=== PATIENT | male | born 1960 | race Caucasian/White ===

== ENCOUNTER 2016-10-31 08:16 | Emergency (ER) | payer MEDICARE ==
[2016-10-31] MEDS ORDERED: ALBUTEROL SULFATE 2.5 MG/0.5 ML VIAL.NEB IH ONE ×2 (08:22→08:30)
[2016-10-31 08:37] VITALS: BP 129/81
[2016-10-31 08:43] LABS: Hematocrit 35.5 % (42.0-52.0); Hemoglobin 11.6 gm/dL (13.5-18.0); Mean Cell Volume 95.4 fl (78-100); Mean Corpuscular Hemoglobin 31.2 pg (27-31); Mean Corpuscular Hgb Conc 32.7 g/dl (32-36); Mean Platelet Volume 9.9 fl (6.0-9.5); Platelet Count 96 K/mm3 (150-450); Red Blood Count 3.72 M/mm3 (4.7-6.0); Red Cell Distribution Width 13.6 % (11.5-14.0); White Blood Count 4.3 K/mm3 (4.0-10.5)
--- NOTE | 2016-10-31 08:56 | ERNOTE ---
Dyspnea - General Presenting Symptoms: shortness of breath Time Seen by Provider: 10/31/16 08:19 Source: patient Exam Limitations: no limitations - Immun/Allergies/Home Medications Immunizations: IMMUNIZATION HX Immunizations Up to Date Yes History of Influenza Vaccine Yes Hx Pneumococcal Vaccination No Allergies/Adverse Reactions: Allergies No Known Allergies Allergy (Verified 10/31/16 08:37) Home Medications: HOME MEDICATIONS Methadone HCl [Methadone] 5 mg PO BID 11/24/13 [Last Taken Unknown] Omeprazole [Prilosec] 20 mg PO DAILY 11/24/13 [Last Taken Unknown] Aspirin 81 mg PO DAILY 12/31/15 [Last Taken Unknown] Albuterol Sulfate/Ipratropium [Duoneb 2.5-0.5MG/3ML Soln] 3 ml IH Q6HRT #50 nebu 01/02/16 [Last Taken Unknown] Cholecalciferol (Vitamin D3) [Vitamin D] 2,000 unit PO DAILY #90 tablet [Last Taken Unknown] predniSONE [Prednisone] 20 mg PO DAILY #15 tablet 01/02/16 [Last Taken Unknown] Albuterol Sulfate 2.5 mg IH Q4H PRN #25 vial.neb 10/31/16 [Last Taken Unknown] Albuterol Sulfate [Proventil Hfa] 2 puff IH Q4H PRN 10/31/16 [Last Taken Unknown ] Budesonide/Formoterol Fumarate [Symbicort 160-4.5 Mcg Inhaler] 2 puff IH BID 04/11 [Last Taken Unknown] Levofloxacin [Levaquin] 500 mg PO DAILY 10/31/16 [Last Taken Unknown] Magnesium Oxide 840 mg PO HS 10/31/16 [Last Taken Unknown] Tiotropium [place] [Spiriva] 18 mcg IH DAILY 10/31/16 [Last Taken Unknown] - History of Present Illness Narrative: Patient started with increasing shortness of breath three days ago. He has a 100py smoking history, diagnoses of COPD, usually doctors at the ID in [place]. He had a temp of 102 initially , was seen in the walk in clinic two days ago and started on levaquin and prednisone. He feels that he is not getting better yet, he has chest tightness. He had his aortic valve replaced last year, angiogram at that time was normal. Date (Duration): 10/28/16 Severity: moderate Treatment [employer]: albuterol Initiating event: Reports: upper resp illness, exposure to smoke. Denies: out of meds Frequency of episodes: Reports: occassional episodes Modifying Factors - (Improves): Reports: albuterol Modifying Factors (Worsens): Reports: activity, lying down Associated Symptoms-Dyspnea: Reports: fever/chills, chest pain/discomfort - tightness, cough Prior Treatment: Reports: recently seen, currently on antibiotics, previous episodes Review of Systems - Review of Systems Constitutional: Present: recent illness, fever ENT: Present: nasal drainage. Absent: ear pain, sore throat Respiratory: Present: See HPI, shortness of breath, cough Cardiology: Present: chest pain Gastrointestinal/Abdominal: Absent: nausea, vomiting, diarrhea, abdominal pain Genitourinary: Present: no symptoms reported Skin: Absent: rash Neurological: Absent: headache - Patient's Past Medical History Patient History - Medical: Arthritis, Chronic Pain Patient History - Cardiac/Respiratory: COPD, Valvular Heart Disease Patient History - Cancer: No Hx of Cancer Patient History - Surgical Procedures: Back Surgery - c-spine, Total Hip Replacement, Other - valve replacement 2015 - Family History Father Family History - Medical: , Other Mother Family History - Medical: , Other Family History - Cardiac/Respiratory: Myocardial Infarction Brother Family History - Medical: Family History - Cardiac/Respiratory: Other - Social History Living Situations: home Alcohol Use: occasionally Drug Use: none Physical Exam - Physical Exam General Appearance: Present: wd/wn, alert, no apparent distress Eye Exam: Normal inspection: bilateral, PERRL: bilateral Ears, Nose, Throat: Present: normal ENT inspection, hearing grossly normal, normal pharynx Neck: Present: limited range of motion Respiratory: Present: no respiratory distress - slightly increased work of breathing with walking , decreased breath sounds, wheezing Cardiovascular/Chest: Present: regular rate, rhythm, no murmur Gastrointestinal/Abdominal: Present: normal bowel sounds, nontender, nondistended, soft Extremity Exam: Present: no edema Neurological Exam: Present: alert, oriented, normal mood/affect Skin Exam: Present: normal color, warm/dry ED Progress - Results and Orders Patient's Lab Results:: I have reviewed the patient's lab results. - Vital Signs Patient's Vital Signs:: I have reviewed the patient's vital signs. - EKG EKG: NSR, unchanged from - 12/2015, other - atrial enlargement, no acute changes EKG read: Interp. by me - X-Ray X-Ray #1 X-Ray: chest - chronic, no acute changes Interpretation: Reviewed by me - Progress/Reassessment Progress Note-Subjective: 10/31/16 08:41 better after breathing treatment, chest tightness 02/0210/31/16 09:38 discussed results, patient comfortable, saturating 95% on RA Departure Clinical Impression: COPD exacerbation - Departure Disposition: Home self-care Condition: Good Instructions: Chronic Obstructive Pulmonary Disease, [id number] Additional Instructions: take all your medication as prescribed take the albuterol instead of the duoneb follow up with your doctor as scheduled Prescriptions: Albuterol Sulfate 2.5 mg IH Q4H PRN #25 vial.neb PRN Reason: Shortness Of Breath/Wheezing
[2016-10-31 08:57] LABS: Total Cells Counted 100
[2016-10-31 09:01] LABS: Troponin I Less than 0.017 ng/ml (0.00-0.10)
[2016-10-31 09:03] LABS: ALT 54 U/L (19-67); AST 38 U/L (0-48); Albumin * 3.8 gm/dl (3.4-5.0); Alkaline Phosphatase * 64 U/L (50-170); BNP * 196 pg/mL (5-175); BUN/Creatinine Ratio 16.9 (9.0-21.6); Bilirubin, Total 0.4 mg/dL (0.0-1.1); Blood Urea Nitrogen 14 mg/dL (6-23); Ca. Corrected For Albumin 8.7 mg/dL (8.4-10.2); Calcium * 8.9 mg/dL (7.9-10.9); Carbon Dioxide 28.4 mmol/L (24-32.6); Chloride 104 mmol/L (97-106); Glucose * 135 mg/dL (70-110); Potassium 4.4 mmol/L (3.4-4.6); Sodium 141 mmol/L (132-142); Total Protein 7.1 gm/dL (6.2-8.2)
[2016-10-31 09:04] LABS: Band 9 % (0-2.0); Lymphocyte 3 % (20-51); Monocyte 3 % (0-9); Neutrophil 85 % (42-75); Neutrophil # 3.7 K/mm3 (1.3-6.0)
[2016-10-31 09:06] LABS: Dohle Bodies 2+; Platelet Estimate Decreased (NORMAL); RBC Morphology Normal (NORMAL); Toxic Granulation 2+
== END 2016-10-31 10:00 | disposition home or self-care (01) ==
LOC: ER 08:16
DX: J44.1 Chronic obstructive pulmonary disease with (acute) exacerbation (principal)

== ENCOUNTER 2016-11-03 06:27 | Emergency (ER) | payer MEDICARE ==
--- NOTE | 2016-11-03 07:20 | ERNOTE ---
Integumentary HPI - Narrative Date of Service: 11/03/16 - General Presenting Symptoms: other - swelling of neck Time Seen by Provider: 11/03/16 06:56 Source: patient, family Exam Limitations: no limitations - Immun/Allergies/Home Medications Immunizations: IMMUNIZATION HX Immunizations Up to Date Yes History of Influenza Vaccine No Hx Pneumococcal Vaccination Yes Allergies/Adverse Reactions: Allergies Allergy/AdvReac Type Severity Reaction Status Date / Time No Known Allergies Allergy Verified 10/31/16 08:37 Home Medications: HOME MEDICATIONS Methadone HCl [Methadone] 5 mg PO BID 11/24/13 [Last Taken Unknown] Omeprazole [Prilosec] 20 mg PO DAILY 11/24/13 [Last Taken Unknown] Aspirin 81 mg PO DAILY 12/31/15 [Last Taken Unknown] Albuterol Sulfate/Ipratropium [Duoneb 2.5-0.5MG/3ML Soln] 3 ml IH Q6HRT #50 nebu 01/02/16 [Last Taken Unknown] Cholecalciferol (Vitamin D3) [Vitamin D] 2,000 unit PO DAILY #90 tablet [Last Taken Unknown] predniSONE [Prednisone] 20 mg PO DAILY #15 tablet 01/02/16 [Last Taken Unknown] Albuterol Sulfate 2.5 mg IH Q4H PRN #25 vial.neb 10/31/16 [Last Taken Unknown] Albuterol Sulfate [Proventil Hfa] 2 puff IH Q4H PRN 10/31/16 [Last Taken Unknown ] Budesonide/Formoterol Fumarate [Symbicort 160-4.5 Mcg Inhaler] 2 puff IH BID 04/11 [Last Taken Unknown] Levofloxacin [Levaquin] 500 mg PO DAILY 10/31/16 [Last Taken Unknown] Magnesium Oxide 840 mg PO HS 10/31/16 [Last Taken Unknown] Tiotropium [place] [Spiriva] 18 mcg IH DAILY 10/31/16 [Last Taken Unknown] - History of Present Illness Narrative: Unusual irregular firm swelling of the left side of the neck which extends across the midline to the right side of the neck. It began suddenly this morning at 3 AM. No history of similar episode. Denies dental problems at this time. Patient is concerned that the swelling may affect his airway. He is breathing normally at this time with a normal pulse ox. He does have severe COPD but the swelling does not appear to be subcutaneous emphysema Date (Duration): 11/03/16 Time (Timing): 03:00 Location: Reports: neck Quality: Reports: other - swelling Severity: moderate Exposure: Reports: no cause identified Modifying Factors - (Improves): Reports: nothing Modifying Factors - (Worsens): Reports: nothing Associated Symptoms: Reports: denies symptoms Review of Systems - Review of Systems Constitutional: Present: no symptoms reported EYE: Present: no symptoms reported ENT: Present: See HPI Respiratory: Present: no symptoms reported Cardiology: Present: no symptoms reported Gastrointestinal/Abdominal: Present: no symptoms reported Genitourinary: Present: no symptoms reported Musculoskeletal: Present: no symptoms reported Skin: Present: no symptoms reported Neurological: Present: no symptoms reported Endocrine: Present: no symptoms reported Hematologic/Lymphatic: Present: no symptoms reported Psych: Present: no symptoms reported - Patient's Past Medical History Patient History - Medical: Arthritis, Chronic Pain Patient History - Cardiac/Respiratory: COPD, Valvular Heart Disease Patient History - Cancer: No Hx of Cancer Patient History - Surgical Procedures: Back Surgery, Total Hip Replacement, Other - Family History Father Family History - Medical: , Other Mother Family History - Medical: , Other Family History - Cardiac/Respiratory: Myocardial Infarction Brother Family History - Medical: Family History - Cardiac/Respiratory: Other - Social History Living Situations: spouse Have you smoked in the past 12 months: No Do you dip or chew tobacco: No Patient requests Smoking Cessation Consult: No Initiate information on Smoking Cessation: No Alcohol Use: occasionally Drug Use: none Physical Exam - Physical Exam General Appearance: Present: mild distress, anxious, other - no respiratory compromise Eye Exam: Normal inspection: bilateral, PERRL: bilateral Ears, Nose, Throat: Present: hearing grossly normal, normal pharynx - no evidence of dental abscess Neck: Present: full range of motion, other - irregular firm swelling of the left side of the neck with extension across the midline to the right side of the neck. Absent: lymphadenopathy (R), lymphadenopathy (L) Respiratory: Present: no respiratory distress, wheezing - minimal Cardiovascular/Chest: Present: regular rate, rhythm Gastrointestinal/Abdominal: Present: normal bowel sounds, nontender, nondistended, soft, no organomegaly Rectal Exam: Present: deferred Extremity Exam: Present: normal inspection Neurological Exam: Present: alert, oriented, normal mood/affect, no motor/ sensory deficits Skin Exam: Present: normal color, warm/dry Lymphatic Exam: Present: no adenopathy ED Progress - Vital Signs Vital Signs: Vital Signs 11/03/16 06:33 Temperature 36.2 C L Pulse Rate 88 Respiratory 22 H Rate Blood Pressure 146/83 O2 Sat by Pulse 93 Oximetry - Progress/Reassessment Chief Complaint: Abscess Progress:: Unchanged - Transfer of Care Physician Sign Out: Reno Lopez Receiving Physician: Asuncion Shen Pending Results: CT/MRI results Additional Notes: discussed with Dr. Shen Departure Clinical Impression: Neck swelling - Departure Condition: Stable
[2016-11-03 07:21] LABS: Hematocrit 37.8 % (42.0-52.0); Hemoglobin 12.4 gm/dL (13.5-18.0); Mean Cell Volume 94.5 fl (78-100); Mean Corpuscular Hgb Conc 32.8 g/dl (32-36); Mean Platelet Volume 9.7 fl (6.0-9.5); Platelet Count 113 K/mm3 (150-450); Red Cell Distribution Width 13.2 % (11.5-14.0); White Blood Count 4.8 K/mm3 (4.0-10.5)
[2016-11-03 07:23] LABS: Total Cells Counted 100
[2016-11-03 07:36] LABS: Albumin * 3.6 gm/dl (3.4-5.0); Anion Gap 10.1 mmol/L (6.8-13.8); BUN/Creatinine Ratio 9.4 (9.0-21.6); Bilirubin, Total 0.7 mg/dL (0.0-1.1); Carbon Dioxide 31.7 mmol/L (24-32.6); Potassium 3.8 mmol/L (3.4-4.6); Total Protein 6.8 gm/dL (6.2-8.2)
[2016-11-03 08:18] LABS: Atypical (Reactive) Lymph 12 % (0-2); Band 3 % (0-2.0); Eosinophil 3 % (0-3); Lymphocyte 27 % (20-51); Monocyte 8 % (0-9); Neutrophil 47 % (42-75); Neutrophil # 2.3 K/mm3 (1.3-6.0)
[2016-11-03 08:19] LABS: Platelet Estimate Decreased (NORMAL); Target Cells 1+
[2016-11-03 08:31] VITALS: BP 122/76
== END 2016-11-03 08:32 | disposition home or self-care (01) ==
LOC: ER 06:27
DX: K11.20 Sialoadenitis, unspecified (principal); R22.1 Localized swelling, mass and lump, neck; J44.9 Chronic obstructive pulmonary disease, unspecified; G89.29 Other chronic pain

== ENCOUNTER 2019-12-12 11:23 | Observation (INO) ==
[2019-12-12] MEDS ORDERED: ALBUTEROL SULFATE/IPRATROPIUM 3 ML NEBU IH ONE (11:34)
[2019-12-12 11:58] LABS: Hemoglobin 12.6 gm/dL (13.5-18.0); Mean Cell Volume 97.8 fl (78-100); Mean Corpuscular Hemoglobin 30.8 pg (27-31); Mean Corpuscular Hgb Conc 31.5 g/dl (32-36); Mean Platelet Volume 9.9 fl (8-11.3); Neutrophil # 4.6 K/mm3 (1.3-6.0); Platelet Count 113 K/mm3 (150-450); Red Blood Count 4.09 M/mm3 (4.7-6.0); Red Cell Distribution Width 13.1 % (11.5-14.0); White Blood Count 5.5 K/mm3 (4.0-10.5)
[2019-12-12] MEDS ORDERED: ALBUTEROL SULFATE 2.5 MG/0.5 ML VIAL.NEB IH ONE ×2 (12:12→13:26)
[2019-12-12] MEDS ORDERED: METHYLPREDNISOLONE SOD SUCC/PF 125 MG/2 ML VIAL IM ONE (12:12)
[2019-12-12 12:14] LABS: Anion Gap 12.2 mmol/L (6.8-13.8); BUN/Creatinine Ratio 13.2 (9.0-21.6); Bilirubin, Total 0.4 mg/dL (0.0-1.1); Ca. Corrected For Albumin 8.6 mg/dL (8.4-10.2); Calcium * 8.9 mg/dL (7.9-10.9); Carbon Dioxide 29.9 mmol/L (24-32.6); Potassium 4.1 mmol/L (3.4-4.6); Total Protein 7.7 gm/dL (6.2-8.2)
[2019-12-12] MEDS ORDERED: METHYLPREDNISOLONE SOD SUCC/PF 125 MG/2 ML VIAL IV ONE (13:36)
[2019-12-12] MEDS ORDERED: LEVOFLOXACIN IN DEXTROSE 5 % 750 MG/150 ML BAG IV ONE (13:39)
[2019-12-12] MEDS ORDERED: OSELTAMIVIR PHOSPHATE 75 MG CAPSULE PO ONE (13:39)
--- NOTE | 2019-12-12 13:53 | ERNOTE ---
Date of Service: 12/12/19 Time Seen by Provider: 12/12/19 12:03 Stated Complaint: cough, chest pain, COPD Presenting Symptoms:: cough, other - ST Source: patient Exam Limitations: no limitations Immunizations: IMMUNIZATION HX Immunizations Up to Date Yes History of Influenza Vaccine Yes Hx Pneumococcal Vaccination Yes Allergies/Adverse Reactions: Allergies No Known Allergies Allergy (Verified 12/10/19 13:20) Home Medications: HOME MEDICATIONS Budesonide/Formoterol Fumarate [Symbicort 160-4.5 Mcg Inhaler] 2 puff INHALATION BID 04/07/18 [Last Taken Unknown] Methocarbamol 750 mg PO TID 04/07/18 [Last Taken Unknown] Nitroglycerin 0.4 mg SUBLINGUAL Q5M 04/07/18 [Last Taken Unknown] albuterol sulfate 90 mcg/actuation aerosol inhaler 2 puff INHALATION Q4H PRN g 09/17/18 [Last Taken Unknown] duloxetine 30 mg capsule,delayed release 30 mg PO DAILY 09/17/18 [Last Taken Unknown] isosorbide mononitrate 60 mg tablet,extended release 24 hr 60 mg PO DAILY 09/17/18 [Last Taken Unknown] amoxicillin 500 mg capsule 500 mg PO TID 12/10/19 [Last Taken Unknown] levofloxacin 500 mg tablet 500 mg PO DAILY 5 Days #5 tab 12/10/19 [Last Taken Unknown] metoprolol tartrate 25 mg tablet 25 mg PO BID tab 12/10/19 [Last Taken Unknown] prednisone 20 mg tablet 40 mg PO DAILY 5 Days #10 tab 12/10/19 [Last Taken Unknown] tiotropium bromide 18 mcg capsule with inhalation device 1 cap IH DAILY 12/10/19 [Last Taken Unknown] - History of Present Ilness Narrative: Patient presents to the ED for SOB and cough. He has COPD and has been sick for 3 days. Went to walk in clinic and had steroids Rx'd but despite this feels worse. Takes neb at home. Has oxygen at night and CPAP. Feels SOB with exertion. No clear fever but has felt hot and cold. Worsening despite treatments Timing: getting worse Severity: moderate Frequency/Possible Cause: Reports: occasional episodes Modifying Factors - Improves: Reports: nothing Modifying Factors - Worsens: Reports: activity Associated Symptoms: Reports: cough, shortness of breath, nasal congestion Prior Treatment: Reports: recently seen, treated by physician. Denies: currently on antibiotics Review of Systems - Review of Systems Constitutional: Present: See HPI EYE: Present: no symptoms reported ENT: Present: See HPI Respiratory: Present: cough Cardiology: Absent: chest pain Gastrointestinal/Abdominal: Absent: abdominal pain All Other Systems: All systems neg except as marked Medical History (Last Reviewed 12/12/19 @ 13:48 by Maximo Berkowitz MD) Pneumonia (Acute) Arthritis of right hip (Chronic) Pain, dental (Acute) Dental infection (Acute) COPD exacerbation (Acute) Neck swelling (Acute) Sialoadenitis of submandibular gland (Acute) Acute hip pain (Acute) Intractable pain (Acute) Elevated LFTs (Acute) Biliary obstruction (Acute) Chest pain (Acute) Arthritis Onset Date: Unknown COPD (chronic obstructive pulmonary disease) Onset Date: 12/19/17 GERD (gastroesophageal reflux disease) Onset Date: Unknown Influenza B Onset Date: 12/19/17 Pneumonia due to infectious organism Onset Date: 12/19/17 Wheezing Onset Date: 12/19/17 Surgical History: Surgical History (Last Reviewed 12/12/19 @ 13:48 by Maximo Berkowitz MD) H/O aortic valve replacement Onset Date: Unknown History of right hip replacement Onset Date: Unknown 9 total Family History: Family History (Last Reviewed 12/12/19 @ 13:48 by Maximo Berkowitz MD) Father Liver cirrhosis Mother Myocardial infarction Brother Mononucleosis Social History: (Last Reviewed 12/12/19 @ 13:48 by Maximo Berkowitz MD) Social History: adopted: No foster care: No snf: No Marital status: lives independently: Yes household members: spouse caregiver/support person: No current occupational status: employed Service: No Tobacco: Smoking Status: Former smoker Alcohol: alcohol intake: never Substance Use: substance use type: does not use Dietary Habits: caffeine: No Physical Exam - Physical Exam General Appearance: Present: alert, other - frequent cough, tachypnea noted Head Exam: Present: normal inspection, no evidence of injury Eye Exam: Normal inspection: bilateral, PERRL: bilateral Ears, Nose, Throat: Absent: pharyngeal erythema, pharyngeal swelling, dry mucous membranes Neck: Present: normal inspection Respiratory: Present: respiratory distress, wheezing Cardiovascular/Chest: Present: regular rate, rhythm Gastrointestinal/Abdominal: Present: normal bowel sounds, nontender, soft Back Exam: Present: normal range of motion Extremity Exam: Present: normal range of motion Neurological Exam: Present: alert, no motor/sensory deficits Skin Exam: Present: normal color, warm/dry Progress - Results and Orders Patient's Lab Results:: I have reviewed the patient's lab results. - Vital Signs Patient's Vital Signs:: I have reviewed the patient's vital signs. Vital Signs: Vital Signs 12/12/19 11:29 12/12/19 11:42 12/12/19 11:51 Temperature 36.5 C Pulse Rate 100 87 87 Respiratory Rate 21 H 21 H 22 H Blood Pressure 130/83 132/75 O2 Sat by Pulse Oximetry 95 95 96 12/12/19 12:36 12/12/19 12:38 12/12/19 12:46 Temperature Pulse Rate 87 82 87 Respiratory Rate 22 H 15 20 Blood Pressure 130/68 O2 Sat by Pulse Oximetry 94 93 12/12/19 13:03 Temperature Pulse Rate 81 Respiratory Rate 21 H Blood Pressure 126/60 O2 Sat by Pulse Oximetry 90 L - X-Ray X-Ray #1 X-Ray: chest Interpretation: Interp. by me X-ray Comments: I reviewed official radiology report - Progress/Reassessment Chief Complaint: Upper Respiratory Symptoms Progress Note-Subjective: 12/12/19 13:50 Patient with Influenza and COPD exacerbation. Steroids and nebs given. Desats and gets increased SOB with exertion. Hypoxia noted. Given underlying severe lung Dz needs obs[facility] to [facility]ize here. Dr Torey max d, she will admit. Given severe underlying lung Dz elect to start Tamiflu despite just being out of window. Also Abx per Dr Lema. No need for PPV at this time. Patient agreeable. I discussed warning signs and reasons to return as well as the need for close f/u. Departure Clinical Impression: COPD exacerbation, Influenza, Hypoxia - Departure Disposition: Still a patient Condition: Fair
[2019-12-12] MEDS ORDERED: ALBUTEROL SULFATE 2.5 MG/0.5 ML VIAL.NEB IH PRN (16:42)
--- NOTE | 2019-12-12 16:51 | HP ---
Chief Complaint - Chief Complaint Date of Service: 12/12/19 Time of Service: 16:10 Chief Complaint: shortness of breath History of Present Illness: Patient with past medical history of COPD, previous valve replacement presents with 3-day history of acute shortness of breath. His symptoms started 3 days prior with cough. They worsened the next day and he went to the walk-in clinic, and was prescribed 40 mg prednisone and Levaquin. He had severe chest pain yesterday, for which she took 2 nitroglycerin tablets, which managed his chest pain. He was not getting better today, so came to our ED. He was noted to have significant shortness of breath, and oxygenation was decreased into the 80s with any ambulation. His influenza A was positive. He does wear 3 L of oxygen at night, and uses a CPAP. He is to be admitted for treatment of COPD exacerbation. [facility] however [facility] do not have [facility]. Chest x-ray was reviewed, and does not reveal any acute process. White blood cell count was not elevated at 5.5. He is intermittently tachypneic, up to 22 respirations per minute. Blood pressure and heart rate are normal. His oxygenation is down to 88% in the ED. Medical History (Last Reviewed 12/12/19 @ 14:41 by Sophie Aldridge RN) Pneumonia (Acute) Arthritis of right hip (Chronic) Pain, dental (Acute) Dental infection (Acute) COPD exacerbation (Acute) Neck swelling (Acute) Sialoadenitis of submandibular gland (Acute) Acute hip pain (Acute) Intractable pain (Acute) Elevated LFTs (Acute) Biliary obstruction (Acute) Chest pain (Acute) Hernia Arthritis Onset Date: Unknown COPD (chronic obstructive pulmonary disease) Onset Date: 12/19/17 GERD (gastroesophageal reflux disease) Onset Date: Unknown Influenza B Onset Date: 12/19/17 Pneumonia due to infectious organism Onset Date: 12/19/17 Wheezing Onset Date: 12/19/17 Surgical History: Surgical History (Last Reviewed 12/12/19 @ 14:41 by Sophie Aldridge RN) History of carpal tunnel release History of cholecystectomy H/O aortic valve replacement Onset Date: Unknown History of right hip replacement Onset Date: Unknown 14 total Family History: Family History (Last Reviewed 12/12/19 @ 14:42 by Sophie Aldridge RN) Father Liver cirrhosis Mother Myocardial infarction Brother Mononucleosis Myocardial infarction Lung cancer Sister Myocardial infarction Social History: (Last Reviewed 12/12/19 @ 14:44 by Sophie Aldridge RN) Social History: adopted: No foster care: No fpc: No Marital status: lives independently: Yes household members: spouse caregiver/support person: No current occupational status: employed, unemployed Service: Yes branch: [employer] Social status: retired Tobacco: Smoking Status: Former smoker Alcohol: alcohol intake: current alcohol intake frequency: a few times a week Substance Use: substance use type: does not use Dietary Habits: caffeine: Yes Type: carbonated beverages Review Of Systems (GEN) - Review of Systems Generalized/Overall Review: Absent: Fever EENTM: Present: No Symptoms Reported Respiratory: Present: Cough, Shortness of Breath, Wheezing Cardiac: Present: Chest Pain. Absent: Edema Abdominal: Absent: Vomiting Genitourinary: Present: No Symptoms Reported Musculoskeletal: Present: No Symptoms Reported Neurological: Present: No Symptoms Reported Skin: Present: No Symptoms Reported Endocrine: Present: No Symptoms Reported Immunizations: IMMUNIZATION HX Immunizations Up to Date Yes History of Influenza Vaccine Yes Hx Pneumococcal Vaccination Yes Allergies/Adverse Reactions: Allergies Allergy/AdvReac Type Severity Reaction Status Date / Time No Known Allergies Allergy Verified 12/12/19 14:44 Home Medications: HOME MEDICATIONS Budesonide/Formoterol Fumarate [Symbicort 160-4.5 Mcg Inhaler] 2 puff INHALATION BID 04/07/18 [Last Taken Unknown] Methocarbamol 750 mg PO TID 04/07/18 [Last Taken Unknown] Nitroglycerin 0.4 mg SUBLINGUAL Q5M 04/07/18 [Last Taken Unknown] albuterol sulfate 90 mcg/actuation aerosol inhaler 2 puff INHALATION Q4H PRN g 09/17/18 [Last Taken Unknown] duloxetine 30 mg capsule,delayed release 30 mg PO DAILY 09/17/18 [Last Taken Unknown] isosorbide mononitrate 60 mg tablet,extended release 24 hr 60 mg PO DAILY 09/17/18 [Last Taken Unknown] amoxicillin 500 mg capsule 500 mg PO TID 12/10/19 [Last Taken Unknown] levofloxacin 500 mg tablet 500 mg PO DAILY 5 Days #5 tab 12/10/19 [Last Taken Unknown] metoprolol tartrate 25 mg tablet 25 mg PO BID tab 12/10/19 [Last Taken Unknown] prednisone 20 mg tablet 40 mg PO DAILY 5 Days #10 tab 12/10/19 [Last Taken Unknown] tiotropium bromide 18 mcg capsule with inhalation device 1 cap IH DAILY 12/10/19 [Last Taken Unknown] Atorvastatin Calcium 20 mg PO DAILY 12/12/19 [Last Taken Unknown] Exam - Exam Vital Signs: Vital Signs - Last Taken Temp 37.4 C 12/12/19 14:49 Pulse 89 12/12/19 14:49 Resp 22 H 12/12/19 14:49 BP 124/77 12/12/19 14:49 Pulse Ox 93 12/12/19 14:49 Constitutional: Present: Alert, Oriented x3, Mild distress Respiratory: Present: accessory muscle use, wheezing. Absent: crackles, rhonchi Cardiovascular/Chest: Present: regular rate, rhythm. Absent: chest tender, edema Abdomen: Present: nontender, nondistended Extremity: Absent: lower extremity edema Eye contact: Present: cooperative Diagnostic Studies: Abnormal Lab Results 12/12/19 12/12/19 12/12/19 Range/Units 11:46 11:46 11:46 RBC 4.09 L (4.7-6.0) M/mm3 Hgb 12.6 L (13.5-18.0) gm/dL Hct 40.0 L (42.0-52.0) % MCHC 31.5 L (32-36) g/dl Plt Count 113 L (150-450) K/mm3 Immature Gran % (Auto) 0.50 H (0.001-0.429) % Neutrophils % 84.0 H (42-75.0) % Lymphocytes % 6.4 L (20-51) % Monocytes % 9.1 H (0.0-9) % Lymphocytes # 0.35 L (1.5-3.5) k/mm3 Random Glucose 115 H (70-110) mg/dL AST 68 H (0-48) U/L Influenza Type A Ag Positive H (NEGATIVE) Laboratory Results WBC 5.5 K/mm3 (4.0-10.5) 12/12/19 11:46 RBC 4.09 M/mm3 (4.7-6.0) L 12/12/19 11:46 Hgb 12.6 gm/dL (13.5-18.0) L 12/12/19 11:46 Hct 40.0 % (42.0-52.0) L 12/12/19 11:46 MCV 97.8 fl (78-100) 12/12/19 11:46 MCH 30.8 pg (27-31) 12/12/19 11:46 MCHC 31.5 g/dl (32-36) L 12/12/19 11:46 RDW 13.1 % (11.5-14.0) 12/12/19 11:46 Plt Count 113 K/mm3 (150-450) L 12/12/19 11:46 MPV 9.9 fl (8-11.3) 12/12/19 11:46 Immature Gran % (Auto) 0.50 % (0.001-0.429) H 12/12/19 11:46 Immature Gran # (Auto) 0.03 K/mm3 (0.000-0.0310) 12/12/19 11:46 Neutrophils % 84.0 % (42-75.0) H 12/12/19 11:46 Lymphocytes % 6.4 % (20-51) L 12/12/19 11:46 Monocytes % 9.1 % (0.0-9) H 12/12/19 11:46 Eosinophils % 0.0 % (0.0-3.0) 12/12/19 11:46 Basophils % 0.0 % (0.0-1.0) 12/12/19 11:46 Nucleated RBC % 0.0 k/mm3 (0-1) 12/12/19 11:46 Neutrophils # 4.6 K/mm3 (1.3-6.0) 12/12/19 11:46 Lymphocytes # 0.35 k/mm3 (1.5-3.5) L 12/12/19 11:46 Monocytes # 0.5 k/mm3 (0.0-1.0) 12/12/19 11:46 Eosinophils # 0.0 k/mm3 (0.0-0.7) 12/12/19 11:46 Absolute Basophils 0.0 k/mm3 (0.0-0.1) 12/12/19 11:46 Sodium 141 mmol/L (132-142) 12/12/19 11:46 Plasma Sodium 141 mmol/L (130-142) 12/12/19 11:46 Potassium 4.1 mmol/L (3.4-4.6) 12/12/19 11:46 Chloride 103 mmol/L (97-106) 12/12/19 11:46 Carbon Dioxide 29.9 mmol/L (24-32.6) 12/12/19 11:46 Anion Gap 12.2 mmol/L (6.8-13.8) 12/12/19 11:46 BUN 10 mg/dL (6-23) 12/12/19 11:46 Creatinine 0.76 mg/dL (0.4-1.4) 12/12/19 11:46 Est GFR (Non-Af Amer) 111 mL/min (60-130) 12/12/19 11:46 BUN/Creatinine Ratio 13.2 (9.0-21.6) 12/12/19 11:46 Random Glucose 115 mg/dL (70-110) H 12/12/19 11:46 Calcium 8.9 mg/dL (7.9-10.9) 12/12/19 11:46 Calcium Adj for Albumin 8.6 mg/dL (8.4-10.2) 12/12/19 11:46 Total Bilirubin 0.4 mg/dL (0.0-1.1) 12/12/19 11:46 AST 68 U/L (0-48) H 12/12/19 11:46 ALT 56 U/L (19-67) 12/12/19 11:46 Alkaline Phosphatase 76 U/L (50-170) 12/12/19 11:46 Total Protein 7.7 gm/dL (6.2-8.2) 12/12/19 11:46 Albumin 4.0 gm/dl (3.4-5.0) 12/12/19 11:46 Influenza Type A Ag Positive (NEGATIVE) H 12/12/19 11:46 Influenza Type B Ag Negative (NEGATIVE) 12/12/19 11:46 Assessment/Plan - Assessment/Plan (1) Influenza A Assessment: He is currently afebrile. This is likely the source of his COPD exacerbation. He is out of the treatment window, but given the severity of his clinical presentation, will continue the Tamiflu that was started in the ER. Problem: Acute (2) COPD exacerbation Assessment: Likely secondary to influenza A. However, for COPD exacerbation, will start doxycycline. Tamiflu was started in the ED, and given the severity of his illness, will continue while he is here. Will decide if he is seems to be continued on DC based on his clinical presentation. Will continue 60 mg Solu- Medrol every 6 hours, and DuoNeb treatments. We will continue his home Spiriva and Symbicort. He uses 3 L oxygen overnight, and his CPAP. He had significant increased work of breathing when ambulating to the bathroom, and this improves within minutes of rest. At baseline, he reports he always has to stop and walk when he goes any distance. He is currently oxygenating in the low 90s on room air, which is goal. We will need to ensure he is able to oxygenate with ambulation prior to DC. Problem: Acute (3) Chest pain Assessment: Troponin pending. Admission EKG did not show signs of infarct or ischemia. Could be secondary to his cough and influenza. Will have tylenol to use for pain. Problem: Acute (4) Arthritis of right hip Assessment: He reported being prescribed methadone for his hip pain, but his medication list states methocarbamol. We will continue this. Problem: Chronic
[2019-12-12] MEDS: ALBUTEROL SULFATE/IPRATROPIUM 3 ML NEBU IH SCH ×4 (17:25→22:01)
[2019-12-12] MEDS: METHYLPREDNISOLONE SOD SUCC/PF 125 MG/2 ML VIAL IV SCH ×2 (17:40→23:50)
[2019-12-12] MEDS: METHOCARBAMOL 500 MG TABLET PO SCH ×2 (18:45→21:03)
[2019-12-12] MEDS: ACETAMINOPHEN 500 MG TABLET PO PRN (19:37)
[2019-12-12] MEDS: OSELTAMIVIR PHOSPHATE 75 MG CAPSULE PO SCH (21:03)
[2019-12-12] MEDS: FLUTICASONE PROPION/SALMETEROL 14 PUFF DISK.W.DEV IH SCH (21:03)
[2019-12-12] MEDS: DOXYCYCLINE HYCLATE 100 MG TABLET PO SCH (21:04)
[2019-12-13] MEDS: ALBUTEROL SULFATE/IPRATROPIUM 3 ML NEBU IH SCH ×3 (02:03→06:10)
[2019-12-13] MEDS: ACETAMINOPHEN 500 MG TABLET PO PRN (05:40)
[2019-12-13] MEDS: METHYLPREDNISOLONE SOD SUCC/PF 125 MG/2 ML VIAL IV SCH (05:40)
[2019-12-13] MEDS: METHOCARBAMOL 500 MG TABLET PO SCH ×2 (06:24→13:48)
[2019-12-13] MEDS: FLUTICASONE PROPION/SALMETEROL 14 PUFF DISK.W.DEV IH SCH (08:47)
[2019-12-13] MEDS: OSELTAMIVIR PHOSPHATE 75 MG CAPSULE PO SCH (08:48)
[2019-12-13] MEDS: DOXYCYCLINE HYCLATE 100 MG TABLET PO SCH (08:48)
[2019-12-13] MEDS ORDERED: TIOTROPIUM BROMIDE 5 CAP INHALER IH SCH (09:00)
[2019-12-13] MEDS ORDERED: DULoxetine HCL 30 MG CAPSULE.SA PO SCH (09:00)
[2019-12-13] MEDS ORDERED: ALBUTEROL SULFATE/IPRATROPIUM 3 ML NEBU IH PRN (09:05)
[2019-12-13] MEDS ORDERED: NAPROXEN 375 MG TABLET PO PRN (09:06)
[2019-12-13] MEDS ORDERED: METHADONE HCL 10 MG TABLET PO SCH (09:15)
--- NOTE | 2019-12-13 09:21 | PN ---
Subjective - Date and Time Seen Date: 12/13/19 Time: 08:30 Subjective Narrative: Patient reports continued chest pain with cough. He is not coughing much, which concerns him because he feels like he should be coughing something up. Denies chest congestion. He can walk to the bathroom ok. Objective - Review of Systems Generalized/Overall Review: Denies: Fever Respiratory: Reports: Cough, Shortness of Breath, Wheezing Cardiac: Reports: Chest Pain. Denies: Edema Abdominal: Denies: Vomiting Genitourinary Symptoms: Reports: No Symptoms Reported Musculoskeletal Complaints: Reports: Joint Pain - hip Neurological: Reports: No Symptoms Reported Skin: Reports: No Symptoms Reported - Vitals Vitals: Last Vital Signs Temp 36.8 C 12/13/19 06:45 Pulse 92 12/13/19 06:45 Resp 18 12/13/19 06:45 BP 136/74 12/13/19 06:45 Pulse Ox 91 L 12/13/19 06:45 - Abnormal Lab Findings Abnormal Lab Findings: Abnormal Lab Results 12/12/19 12/12/19 12/12/19 Range/Units 11:46 11:46 11:46 RBC 4.09 L (4.7-6.0) M/mm3 Hgb 12.6 L (13.5-18.0) gm/dL Hct 40.0 L (42.0-52.0) % MCHC 31.5 L (32-36) g/dl Plt Count 113 L (150-450) K/mm3 Immature Gran % (Auto) 0.50 H (0.001-0.429) % Neutrophils % 84.0 H (42-75.0) % Lymphocytes % 6.4 L (20-51) % Monocytes % 9.1 H (0.0-9) % Lymphocytes # 0.35 L (1.5-3.5) k/mm3 Random Glucose 115 H (70-110) mg/dL AST 68 H (0-48) U/L Influenza Type A Ag Positive H (NEGATIVE) - Exam Constitutional: Present: Alert, Cooperative, Well developed, Well nourished, No distress Respiratory: Present: no respiratory distress, decreased breath sounds, wheezing - bilateral, anterior more than posterior Cardiovascular/Chest: Present: regular rate, rhythm Extremity: Absent: lower extremity edema Appearance: Present: appropriate appearance Eye contact: Present: cooperative Assessment/Plan - Problems/Diagnosis (1) Influenza A Problem: Acute Narrative: Influenza A positive in the ED on 12/12. Likely source of his COPD exacerbation. Symptoms started several days ago, but Tamiflu was started in the ER yesterday due to the severity of his symptoms. We will continue while he is here, and discussed continuing with him on discharge. He has been afebrile since admission. (2) COPD exacerbation Problem: Acute Narrative: Likely secondary to influenza A. Doxycycline was started 12/12 for COPDe. Tamiflu was started in the ED also on 12/12. He was given 125 mg solumedrol in the ED, and 60 mg Solu-Medrol every 6 hours overnight. His breathing is slightly improved, and wheezing isn't as severe, so will change to 60 mg prednisone daily. He doesn't feel like the DuoNeb treatments are significantly helpful, so will change to prn. We will continue his home Spiriva and Sym bicort. He uses 3 L oxygen overnight, and his CPAP. At baseline, he reports he always has to stop and walk when he goes any distance. He is oxygenating in the low 90s on room air, which is goal. We will need to ensure he is able to oxygenate with ambulation prior to DC. Anticipate DC in 24-48 hours. (3) Chest pain Problem: Acute Narrative: Negative troponin and no signs of ischemia or infarct on EKG. I suspect his chest pain is secondary to costochondritis. 375 mg of naproxen has been started. (4) Arthritis of right hip Problem: Chronic Narrative: He reports being on 5 mg methadone twice daily, which is verified on [employer]. This has been restarted.
[2019-12-13] MEDS ORDERED: predniSONE 20 MG TABLET PO SCH (12:00)
--- NOTE | 2019-12-13 13:46 | DS ---
(1) Influenza A Problem: Acute (2) COPD exacerbation Problem: Resolved (3) Chest pain Problem: Resolved (4) Arthritis of right hip Problem: Chronic Date of Discharge:: 12/13/19 Hospital Course: Patient with past medical history of COPD, previous valve replacement presented with 3-day history of acute shortness of breath. His symptoms started 3 days prior with cough. They worsened the next day and he went to the walk-in clinic on 12/10, and was prescribed 40 mg prednisone and Levaquin. He had severe chest pain yesterday, for which she took 2 nitroglycerin tablets, which managed his chest pain. He accompanied his ill son to the ED, and his asked for him to be evaluated. He was noted to have significant shortness of breath, and oxygenation was decreased into the 80s with any ambulation. His influenza A was positive. He does wear 3 L of oxygen at night, and uses a CPAP. He was to be admitted for treatment of COPD exacerbation. [facility], however [facility] do not have available [facility]. Chest x-ray was reviewed, and does not reveal any acute process. He had significant chest pain with coughing, and troponin & EKG were normal. His chest pain is thought to have been secondary to costochondritis, and naproxen was started. White blood cell count was not elevated at 5.5. He was started on Tamiflu and doxycycline. He was given 125 mg of Solu-Medrol in the ED, and 60 mg Solu-Medrol every 6 hours during his stay. The day after admission, his IV steroids were changed to p.o. That afternoon, he was able to breathe much easier. He was able to complete sentences. He was walked in the hallway, and maintained oxygenation greater than 93%. Aside from some intermittent tachypnea, his vitals were normal. He was discharged with doxycycline and a prednisone taper. Procedures Performed: none Results and Findings: Lab Pending Results 12/12/19 11:46: Influenza Type A Ag Positive H, Influenza Type B Ag Negative 12/12/19 11:46: WBC 5.5, RBC 4.09 L, Hgb 12.6 L, Hct 40.0 L, MCV 97.8, MCH 30.8, MCHC 31.5 L, RDW 13.1, Plt Count 113 L, MPV 9.9, Immature Gran % (Auto) 0.50 H, Immature Gran # (Auto) 0.03, Neutrophils % 84.0 H, Lymphocytes % 6.4 L, Monocytes % 9.1 H, Eosinophils % 0.0, Basophils % 0.0, Nucleated RBC % 0.0, Neutrophils # 4.6, Lymphocytes # 0.35 L, Monocytes # 0.5, Eosinophils # 0.0, Absolute Basophils 0.0 12/12/19 11:46: Sodium 141, Plasma Sodium 141, Potassium 4.1, Chloride 103, Carbon Dioxide 29.9, Anion Gap 12.2, BUN 10, Creatinine 0.76, Est GFR (Non-Af Amer) 111, BUN/Creatinine Ratio 13.2, Random Glucose 115 H, Calcium 8.9, Calcium Adj for Albumin 8.6, Total Bilirubin 0.4, AST 68 H, ALT 56, Alkaline Phosphatase 76, Total Protein 7.7, Albumin 4.0 12/12/19 16:01: Troponin I Less than 0.017 12/12/19 21:47: Troponin I Less than 0.017 Discharge Location: Home Disposition: Home self-care Condition: Fair Discharge Activity: Activity as tolerated Discharge Diet: Resume usual diet Prescriptions (Any new or edited meds): Naproxen [Naprosyn] 375 mg PO Q12H PRN #10 tab PRN Reason: Chest Pain Transmission Status: Pending to [facility] #[id number] predniSONE [Prednisone] 60 mg PO DAILY #24 tab Transmission Status: Pending to [employer] [facility] [employer] #[id number] Doxycycline Hyclate [Vibratab] 100 mg PO BID #8 tab Transmission Status: Pending to [employer] [facility] [employer] #[id number] Complete Home Medications List: Complete Home Medication List: Budesonide/Formoterol Fumarate [Symbicort 160-4.5 Mcg Inhaler] 2 puff INHALATION BID 04/07/18 Methocarbamol 750 mg PO TID 04/07/18 Nitroglycerin 0.4 mg SUBLINGUAL Q5M 04/07/18 albuterol sulfate 90 mcg/actuation aerosol inhaler 2 puff INHALATION Q4H PRN g 09/17/18 duloxetine 30 mg capsule,delayed release 30 mg PO DAILY 09/17/18 isosorbide mononitrate 60 mg tablet,extended release 24 hr 60 mg PO DAILY 09/17/18 levofloxacin 500 mg tablet 500 mg PO DAILY 5 Days #5 tab 12/10/19 metoprolol tartrate 25 mg tablet 12.5 mg PO BID tab 12/10/19 tiotropium bromide 18 mcg capsule with inhalation device 1 cap IH DAILY 12/10/19 Atorvastatin Calcium 20 mg PO DAILY 12/12/19 Aspirin [Aspirin EC] 81 mg PO DAILY 12/13/19 Doxycycline Hyclate [Vibratab] 100 mg PO BID #8 tab 12/13/19 Methadone HCl 5 mg PO BID 12/13/19 Naproxen [Naprosyn] 375 mg PO Q12H PRN #10 tab 12/13/19 predniSONE [Prednisone] 60 mg PO DAILY #24 tab 12/13/19
[2019-12-13 15:55] VITALS: BP 131/70
== END 2019-12-13 16:15 | disposition home or self-care (01) ==
LOC: MS 11:23 → ER 11:23 → MS 14:20
PROVIDERS: ADMIT Family Medicine; ATTEND Family Medicine
CPT/HCPCS: 36415; 71020; 71046; 80053; 84484; 85025; 87040; 87400; 87449; 93005; 94640; 94660; 94664; 96365; 96366; 96375; 99285; G0378